=== PATIENT | female | born 1975 | race Hispanic/Latino ===

== ENCOUNTER → 2018-07-22 | Day surgery (SDC) | payer OTHER ==
[~2018-07-22] MED LIST: Bupivacaine 0.25% HCL 30 ML VIAL ONE; Bupivacaine PF 0.5% 30 ML VIAL ONE; CEFAZOLIN 2 GM/50 ML-DEXTROSE 2 GM in Premix Bag 1 BAG IVPB SCH; Fentanyl 100 MCG/2 ML VIAL ONE; HYDROcodone/Acetaminophen 5/325 mg Tablet ONE; Midazolam HCl 2 mg/2 ml Vial ONE; Morphine 4 MG/ML VIAL ONE; Ondansetron PF 4 MG/2 ML Vial ONE
[2018-07-22 09:01] LABS: #Basophils 0.1 thou/uL (0.0-0.2); #Lymphocytes 1.3 thou/uL (1.20-3.40); #Monocytes 0.5 thou/uL (0.11-0.59); #Neutrophils 7.1 thou/uL (1.40-6.50); %Basophils 0.8 % (0.0-1.0); %Eosinophils 0.4 % (0.0-10.0); %Lymphocytes 14.9 % (21.0-51.0); %Neutrophils 78.9 % (42.0-75.0); Hemoglobin 13.8 g/dL (12.0-16.0); Mean Corpuscular HGB CONC 32.8 g/dL (32.0-36.0); Mean Corpuscular Hemoglobin 28.3 pg (27.0-31.0); Mean Corpuscular Volume 86.2 fL (78.0-98.0); Mean Platelet Volume 7.1 fL (7.4-10.4); Platelet Count 315 thou/uL (130-400); RBC Distribution Width 12.2 % (11.5-14.5); Red Blood Cell (RBC) Count 4.88 mill/uL (4.20-5.40)
--- NOTE | 2018-07-22 11:35 | RAD ---
LEFT ANKLE 3 VIEWS: HISTORY: Slipped and fell on stairs. FINDINGS: There is an obliquely oriented nondisplaced distal fibular fracture. There is also increased distanc e between the medial malleolus and the medial side of the talus suggesting underlying deltoid ligamen t injury. IMPRESSION: Distal fibula shaft fracture and evidence for disruption of the deltoid ligament. POS: [facility]
--- NOTE | 2018-07-22 11:37 | RAD ---
LEFT FOOT 3 VIEWS: HISTORY: Slipped on stairs and injured foot and ankle. FINDINGS: The distal fibula fracture and widened distance between the medial malleolus and medial side of the t alus is again noted. There is no additional evidence of acute injury of the foot. IMPRESSION: Obliquely oriented nondisplaced distal fibula fracture. Also is evidence of disruption of the deltoi d ligament with medial subluxation of the tibia. POS: [facility]
--- NOTE | 2018-07-22 14:16 | RAD ---
LEFT ANKLE 3 VIEWS: HISTORY: Lateral malleolar fracture. FINDINGS/IMPRESSION: Three spot fluoroscopic intraoperative images of the left ankle demonstrate interval reduction and in ternal fixation of the left malleolar fracture noted on earlier exam of same date with plate and scre ws. Anatomic alignment has been restored. Ankle mortise is maintained. POS: [facility]
--- NOTE | 2018-07-22 19:35 | OP ---
DATE OF PROCEDURE: 07/22/2018 PREOPERATIVE DIAGNOSIS: Left lateral malleolus fracture with widening of medial joint space. POSTOPERATIVE DIAGNOSIS: Left lateral malleolus fracture with widening of medial joint space. SURGICAL PROCEDURE: Open reduction internal fixation of left lateral malleolus. ANESTHESIA: General. SURGEON: Mitch Martell M.D. REINFORCED CONCRETE INSPECTOR: Navdeep Willis PA-C. IMPLANTS: Synthes 6-hole 1/3 tubular plate. TOURNIQUET TIME: 38 minutes at 300 mmHg. BLOOD LOSS: Minimal. COMPLICATIONS: None. DRAINS: None. SPECIMEN: None. OUTCOME: Near anatomic alignment. INDICATIONS: Ms. Malik is a pleasant 42-year-old lady who sustained a ground level twisting injur y to her left ankle with resulting left lateral malleolus fracture and some mild widening of the medi al joint space. She was found to have probable disruption of the deltoid ligament. After discussion with the patient including risks and benefits, we decided to proceed with open reduction internal fi xation of the lateral malleolus. I discussed with the patient that I believe that the ankle mortise would reduce with stabilization of the lateral malleolus and further medial surgery not necessary. I nformed consent has been obtained. I believe all questions have been answered. Risks and benefits h ave been discussed. PROCEDURE IN DETAIL: The patient was brought to the operating room and a timeout performed followed by induction of general anesthesia. Next, a sterile prep and drape was performed in the left lower e xtremity. The limb was then exsanguinated with Esmarch bandage, tourniquet inflated to 300 mmHg. Ne xt, a lateral incision was made over the distal fibula after skin was sharply incised, dissection was carried down bluntly. Next, using minimal subperiosteal dissection, the fracture edges were exposed and then the fracture hematoma lavaged from the wound. The fracture was then reduced and held in pl javid with bone tenaculums. Due to the obliquity of the fracture, an anterior to posterior interfragme ntary screw was not felt to be beneficial and as such, a 6-hole 1/3 tubular plate was contoured to fi t the lateral distal fibula. This was then held in place with a total of 6 screws, 3 cancellous scre ws distally and 3 cortical screws proximally. At the completion of this, AP, mortise and lateral C-a rm images of the ankle were obtained that showed anatomic alignment with buddhism of a normal and symmetric joint space. As such, the wound irrigated with normal saline and closed in layers with 0 V icryl deep, followed by 2-0 Vicryl and 3-0 nylon for the skin. A Xeroform gauze, Webril and fibergla ss splint was applied to the ankle. Tourniquet was let down and then the patient was transferred to recovery room in stable condition. There were no complications. She tolerated the procedure well.
== END ==
LOC: ERS 08:04
PROVIDERS: ATTEND Orthopaedic Surgery
PROC: 0QSK04Z Reposition Left Fibula with Internal Fixation Device, Open Approach (ICD-10-PCS; principal; 2018-07-22)
DX: S82.62XA Displaced fracture of lateral malleolus of left fibula, initial encounter for closed fracture (principal); W10.9XXA Fall (on) (from) unspecified stairs and steps, initial encounter; X50.1XXA Overexertion from prolonged static or awkward postures, initial encounter
CPT/HCPCS: 36415; 76001; 85025; 96374; 96375; C1713; J2250; J2270; J2405; J3010; S0020

== ENCOUNTER 2019-03-19 05:50 | Day surgery (SDC) | payer OTHER ==
[2019-03-16 09:13] VITALS: BMI 48.6
[2019-03-19] MEDS ORDERED: Famotidine/PF 20 mg/2ml Vial ONE (06:46)
[2019-03-19] MEDS ORDERED: Midazolam HCl 2 mg/2 ml Vial ONE (06:46)
[2019-03-19] MEDS ORDERED: Fentanyl 100 MCG/2 ML VIAL ONE (06:49)
[2019-03-19 06:56] LABS: BHCG - Serum Negative (NEGATIVE); Pregs Control Background? CLEAR/WHITE (CLR/WHITE); Pregs Control Bar Appear? YES (CONTROL BAR)
[2019-03-19] MEDS ORDERED: hydrALAZINE 20 MG/ML VIAL ONE (08:06)
[2019-03-19] MEDS ORDERED: HYDROmorphone 2 MG/ML VIAL ONE (08:06)
[2019-03-19] MEDS ORDERED: traMADol HCl 50 MG TAB ONE (09:50)
--- NOTE | 2019-03-19 10:04 | OP ---
DATE OF PROCEDURE: 03/19/2019 PREOPERATIVE DIAGNOSES: 1. A 43-year-old female, G3, P3-0-0-3 with an atypical glandular cells of undetermined significance on her Pap smear with positive high-risk human papillomavirus finding. 2. Menorrhagia. 3. Dysmenorrhea. 4. Irregular menses. POSTOPERATIVE DIAGNOSES: 1. A 43-year-old female, G3, P3-0-0-3 with an atypical glandular cells of undetermined significance on her Pap smear with positive high-risk human papillomavirus finding. 2. Menorrhagia. 3. Dysmenorrhea. 4. Irregular menses. 5. Endocervical polyp. PROCEDURE PERFORMED: Diagnostic hysteroscopy with dilation and curettage. ANESTHESIA: General with LMA. ESTIMATED BLOOD LOSS: Less than 2 mL. SPECIMEN: Endometrial and endocervical curettage. CLINICAL HISTORY: This patient is a 43-year-old female, G3, P3, who presented to me originally for her annual appointment. She had a Pap smear that was performed, which subsequently returned with RAISA with positive high-risk HPV. The patient had a colposcopy that was done without any findings. A transformation zone was seen in its entirety, but nothing was highlighted with the acetic acid or the Lugol solution. She was counseled on endometrial biopsy versus a surgical procedure with a diagnostic hysteroscopy and evaluation of her uterine lining and the risks, benefits, and possible complications as well as alternatives were discussed. The patient chose for a definitive surgical procedure and consents were signed. DESCRIPTION OF PROCEDURE: The patient was taken to the operating room, where general anesthesia was obtained. She was laid in the supine position, prepped and draped and [facility]. The sterile speculum was placed into the vagina and the cervix was visualized. The anterior lip was grasped with a single-tooth tenaculum and she was gently dilated with the Hegar dilators to accommodate the hysteroscope. The hysteroscope was then placed into the uterus as the flow of sterile fluid was running and the uterine cavity was evaluated. Pictures were taken. Both ostia were seen and it was noted to be clear without any evidence of irregularities. As the hysteroscope was being removed, there were several cervical polyps that were noted and those were expected to be the culprit for the abnormal Pap smear. A curettage was then performed, initially of just the endocervix and that was collected on a half of a Telfa pad. The second curettage was performed for the uterus and collected on a separate Telfa pad with tissue noted on the endometrial specimen and not really identified on the cervical specimen. Both were sent off for pathology. The patient afterwards was hemostatic. The vagina was cleansed with the ring forceps, sponge on a stick and all instruments were removed. The patient tolerated the procedure well and was able to recover and transfer to the postsurgical unit after needle, sponge, lap, and instrument counts were correct x2 at the end of the procedure. There were no other issues surrounding this surgery. Job ID: [id number]
[2019-03-19] MEDS ORDERED: diphenhydrAMINE 50 MG/ML VIAL ONE (16:27)
[2019-03-19] MEDS ORDERED: Dexamethasone 20 MG/5 ML VIAL ONE (16:27)
[2019-03-19] MEDS ORDERED: PROPOFOL 200 MG/20 ML VIAL ONE (16:27)
[2019-03-19] MEDS ORDERED: Lidocaine 1% PF 5 ML VIAL ONE (16:27)
[2019-03-19] MEDS ORDERED: Ondansetron PF 4 MG/2 ML Vial ONE (16:27)
[2019-03-19] MEDS ORDERED: Ketorolac Tromethamine 30 MG/ML VIAL ONE (16:27)
== END 2019-03-19 10:15 | disposition home or self-care (01) ==
LOC: SDC 05:50
PROVIDERS: ATTEND Obstetrics & Gynecology
PROC: 0UDB7ZX Extraction of Endometrium, Via Natural or Artificial Opening, Diagnostic (ICD-10-PCS; principal; 2019-03-19)
DX: N84.1 Polyp of cervix uteri (principal); N84.0 Polyp of corpus uteri; N88.8 Other specified noninflammatory disorders of cervix uteri; Z79.899 Other long term (current) drug therapy
CPT/HCPCS: 84703; 88305; J0131; J0360; J1170; J2250; J3010; S0028

== ENCOUNTER 2020-08-29 12:04 | Emergency (ER) | payer OTHER ==
--- NOTE | 2020-08-29 12:40 | RAD ---
XR Chest 1 View Portable History: Chest pain Comparison: None. Findings: Lungs are hypoinflated. No confluent airspace consolidation, pneumothorax or effusion. Cardiac silhouette and mediastinal contours are within normal limits given the poor inspiratory effor t. Impression: Lung hypoinflation otherwise no acute intrathoracic abnormality.
[2020-08-29 12:51] LABS: #Basophils 0.1 thou/uL (0.0-0.2); #Eosinphils 0.2 thou/uL (0.0-0.7); #Lymphocytes 2.5 thou/uL (1.20-3.40); #Monocytes 0.5 thou/uL (0.11-0.59); #Neutrophils 5.2 thou/uL (1.40-6.50); %Basophils 1.3 % (0.0-1.0); %Eosinophils 2.1 % (0.0-10.0); %Lymphocytes 29.7 % (21.0-51.0); %Monocytes 6.1 % (0.0-10.0); %Neutrophils 60.8 % (42.0-75.0); Hemoglobin 14.1 g/dL (12.0-16.0); Mean Corpuscular HGB CONC 33.9 g/dL (32.0-36.0); Mean Corpuscular Hemoglobin 29.4 pg (27.0-31.0); Mean Corpuscular Volume 86.7 fL (78.0-98.0); Mean Platelet Volume 7.4 fL (7.4-10.4); Platelet Count 276 thou/uL (130-400); RBC Distribution Width 12.3 % (11.5-14.5); Red Blood Cell (RBC) Count 4.79 mill/uL (4.20-5.40); White Blood Cell (WBC) Count 8.5 thou/uL (4.8-10.8)
[2020-08-29 13:11] LABS: ALT (SGPT) 16 U/L (8-55); AST (SGOT) 13 U/L (5-34); Albumin 4.5 g/dL (3.5-5.0); Alkaline Phosphatase 87 U/L (40-110); Anion Gap 14 mmol/L (10-20); BUN (Urea Nitrogen) 12 mg/dL (7.0-18.7); Bilirubin, Total 0.5 mg/dL (0.2-1.2); CK (CPK) 46 U/L (29-168); Calc. Creatinine Clearance 0 mL/min (70-130); Calcium 9.5 mg/dL (7.8-10.44); Carbon Dioxide 27 mmol/L (22-29); Chloride 103 mmol/L (98-107); Glucose 94 mg/dL (70-105); Potassium 4.1 mmol/L (3.5-5.1); Protein, Total 7.5 g/dL (6.0-8.3); Sodium 140 mmol/L (136-145)
[2020-08-29] MEDS ORDERED: Ketorolac Tromethamine 30 MG/ML VIAL ONE (15:43)
[2020-08-29] MEDS ORDERED: Morphine 4 MG/ML VIAL ONE (15:46)
[2020-08-29] MEDS ORDERED: Mag-Al 1200 mg/1200 mg/30 ML UDCUP ONE (15:54)
[2020-08-29] MEDS ORDERED: Lidocaine Viscous Sol 2% 15 ml UD Cup ONE (15:54)
== END 2020-08-29 16:16 | disposition home or self-care (01) ==
LOC: ERS 12:04
DX: R07.9 Chest pain, unspecified (principal); I10 Essential (primary) hypertension; E66.01 Morbid (severe) obesity due to excess calories
CPT/HCPCS: 36415; 71045; 80053; 82550; 84484; 85025; 93005; 96372; J1885; J2270

== ENCOUNTER 2025-05-29 16:13 | Outpatient (CLI) | payer BC | END 2025-05-29 16:14 | disposition home or self-care (01) | LOC: SCSRAD 16:13 | PROVIDERS: ATTEND Nurse Practitioner Family | DX: M25.551 Pain in right hip (principal) ==